=== PATIENT | male | born 1975 | race African-American/Black ===

== ENCOUNTER 2020-04-30 13:30 | Outpatient (RCR) | payer OTHER, SELFPAY ==
--- NOTE | 2020-03-10 08:33 | OTOPEVAL ---
OCCUPATIONAL THERAPY INITIAL EVALUATION REPORT 03/10/2020 Thank you for referring Dani Ulloa to [facility].? The patient is scheduled to be seen for therapy? 2x/week for 5 weeks. Please review, sign, date and return this plan of care SERGIO. I agree with and certify that the following plan of care is medically necessary. Referring Physician Date Referring Provider: Paco Atkinson MD *OT Outpatient Evaluation Therapy Assessment Status Assessment Status Evaluation Outpatient Past Medical History Past Medical History Source of Past Medical History Patient,Family/Significant Other Other Source of Past Medical History Med list Neurological History Hx Cerebrovascular Accident (CVA) Yes: 02/11/2020 Cardiovascular History Hx Hypercholesterolemia Yes Hx Hypertension Yes Gastrointestinal History Hx Gastroesophageal Reflux Disease Yes Endocrine History Hx Diabetes Yes Evaluation Information Problem Diagnosis CVA Onset 02/11/20 Subjective Information Patient is s/p acute rehab (x5 Query Text:As Reported By Patient/ days) and inpatient rehab (x2 Family weeks). Discharged home on 03/03/20 with orders for outpatient OT, PT, and ST services. He presents today with his [id number], Briseyda. Prior Level of Function Activity Level (Last 3 Months) Occupation Not working prior to CVA Hand Dominance Right Activity of Daily Living Ability Independent Indoor/Home Mobility Independent Community Mobility Independent Stairs Ability Independent Functional Cognition (Planning, Shopping Independent , Taking Medications) Cooking Yes Cleaning Yes Laundry Yes Shopping Yes Driving Yes Home Setting Home Type House,Multiple Levels Environmental Barriers Stairs, None,Stairs, Greater than 4 Living Situation With Minor Child,With Relatives Mobility Assistive Devices (Used Last 3 None Months) Bathroom Environment Tub/Shower, Curtain Bathing Equipment Grab Bars Toileting Equipment None Comments Additional Prior Level of Function Patient lives in a walk-out Comments basement apartment at his [id number]'s home. His two minor children live with him. He doesn't have any steps to enter, but there are 12 steps
--- NOTE | 2020-03-10 15:55 | PTOPEVAL ---
Thank you for referring Dani Ulloa to [facility].? The patient is scheduled to be seen for therapy? 2 x/week for 5 weeks. Please review, sign, date and return this plan of care SERGIO. I agree with and certify that the following plan of care is medically necessary. Referring Physician Date Admitting Provider: Attending Provider: PHYSICIAN NOT ON STAFF Referring Provider: *PT Outpatient Evaluation Start: 03/10/20 10:44 Freq: Status: Active Protocol: Document 03/10/20 14:29 [facility] (Rec: 03/10/20 15:17 [facility] [id number]) Therapy Assessment Status Assessment Status Assessment Status Evaluation Outpatient Past Medical History Past Medical History Source of Past Medical History Patient,Family/Significant Other Other Source of Past Medical History Medlist Neurological History Hx Cerebrovascular Accident (CVA) Yes: 02/11/2020 Cardiovascular History Hx Hypercholesterolemia Yes Hx Hypertension Yes Gastrointestinal History Hx Gastroesophageal Reflux Disease Yes Endocrine History Hx Diabetes Yes Evaluation Information Problem Diagnosis CVA Onset 02/11/20 Subjective Information Ischemic CVA on 02/11/20. Pt Query Text:As Reported By Patient/ only admitted to hospital for Family one day before dischared to rehab. Mother in law reports that tests were done that confirmed he had a blockage. Administered TPA and they implanted a loop recoreder to monitor his cardiac activity. Had 3 weeks of therapy at [facility] inpatient rehab. Denies numbness/tingling at rest. However, numbness of R LE in all dermatomes after increased activity. Used walker at hospital however has not used it since and did not use it in rehab. Wal[place] 1[place] 2x[place]day with his kids. Phone appointment next with primary, neurologist next 02/15, and center maker hand 03/11. States no falls since discharge from rehab. Diagnostic Tests MRI For This Problem Yes Previous Treatments Previous Treatments For This Problem [facility] for [facility] x
--- NOTE | 2020-03-10 16:01 | STOPEVAL ---
SPEECH THERAPY INITIAL EVALUATION: Thank you for referring Dani Ulloa to [facility].? The patient is scheduled to be seen for speech therapy?2x/week for 5 weeks to focus on improving receptive and expressive communication deficits as described below. Please review, sign, date and return this plan of care SERGIO. I agree with and certify that the following plan of care is medically necessary. Referring Physician Date Attending Provider: PHYSICIAN NOT ON STAFF *ST Outpatient Evaluation Start: 03/10/20 13:47 Freq: Status: Active Protocol: Document 03/10/20 13:47 [email or web address] (Rec: 03/10/20 14:38 BECHERERT [email or web address]) Therapy Assessment Status Assessment Status Assessment Status Evaluation Outpatient Past Medical History Past Medical History Source of Past Medical History Patient,Family/Significant Other Other Source of Past Medical History Medlist Neurological History Hx Cerebrovascular Accident (CVA) Yes: 02/11/2020 Cardiovascular History Hx Hypercholesterolemia Yes Hx Hypertension Yes Gastrointestinal History Hx Gastroesophageal Reflux Disease Yes Endocrine History Hx Diabetes Yes Evaluation Information Problem Diagnosis CVA Onset 02/11/20 Subjective Information Patient is s/p acute rehab (x5 Query Text:As Reported By Patient/ days) and inpatient rehab (x2 Family weeks). Discharged home on 03/03/20 with orders for outpatient OT, PT, and ST services. He presents today with his [id number], Briseyda. Currently no driving. Phone appointment next , neurologist next mon, practice billing associate 03/11/20. No falls. Implanted capsule in heart. Ischemic stroke. Diagnostic Tests MRI For This Problem Yes Previous Treatments Previous Treatments For This Problem [facility] Prior Level of Function Home Setting Home Type House,Multiple Levels Environmental Barriers Stairs, None,Stairs, Greater than 4 Living Situation With Adult Child,With Minor Child,With Relatives Cargiver Responsibilities Comment Lives in basement. Kids are 17 and 14. Mobility Assistive Devices (Used Last 3 None Months) Bathroom Environment Tub/Shower, Curtain Bathing Equipment Grab Bars Toileting Equipment None Comments Additional Prior Level of Function Patient lives in a walk-out Comments
--- NOTE | 2020-03-30 07:26 | PCPTNOTE ---
Patient's mother in law called & cancelled scheduled appointment this date. He is in the hospital after experiencing a second stroke.
--- NOTE | 2020-03-30 10:02 | PCOTNOTE ---
Patient's mother in law called and cancelled scheduled appointment this date due to the patient being hospitalized after having another stroke. They are going to call with an update as to when he would be returning to therapy.
--- NOTE | 2020-04-02 09:58 | OTOPEVAL ---
OCCUPATIONAL THERAPY RE-EVALUATION: 04/02/2020 Thank you for referring Dani Ulloa to [facility].? The patient is scheduled to be seen for therapy? 2x/week for 4 weeks. Please review, sign, date and return this plan of care SERGIO. I agree with and certify that the following plan of care is medically necessary. Referring Physician Date Attending Provider: PHYSICIAN NOT ON STAFF *OT Outpatient Re-Evaluation Start: 03/10/20 07:24 Freq: Status: Active Protocol: Document 04/02/20 09:01 ALEJANDRO (Rec: 04/02/20 09:58 ALEJANDRO [email or web address]) Therapy Assessment Status Assessment Status Assessment Status Re-evaluation Evaluation Information Problem Diagnosis CVA Onset 02/11/20 Additional Evaluation Detail Patient has attended outpatient OT for 4 treatment sessions. On 03/29/2020 pt's L arm became numb and pt went to hospital thinking it may be stroke symptoms. Pt has now returned back to outpatient occupational therapy with new order and will have re- evaluation. Prior Level of Function Activity Level (Last 3 Months) Occupation Not working Hand Dominance Right Activity of Daily Living Ability Independent Indoor/Home Mobility Independent Community Mobility Independent Stairs Ability Independent Functional Cognition (Planning, Shopping Independent , Taking Medications) Cooking Yes Cleaning Yes Laundry Yes Shopping Yes Driving Yes Home Setting Home Type House Environmental Barriers Stairs, Greater than 4 Living Situation With Adult Child Cargiver Responsibilities Comment Lives in basement. Kids are 17 and 14. Mobility Assistive Devices (Used Last 3 None Months) Bathroom Environment Tub/Shower, Curtain Bathing Equipment None Toileting Equipment None Comments Additional Prior Level of Function Pt lives in basement with 2 Comments kids age 14 and 17. Mother in law lives upstairs. Right HR ascending from basement to main floor. If he exits to the patio there are no stairs to navigate, states he normally
--- NOTE | 2020-04-02 10:45 | PTOPEVAL ---
PHYSICAL THERAPY PLAN OF CARE UPDATE AND PROGRESS REPORT Thank you for referring Dani Ulloa to [facility].? The patient is scheduled to be seen for therapy? 2x/week for 2 weeks. Please review, sign, date and return this plan of care SERGIO. I agree with and certify that the following plan of care is medically necessary. Referring Physician Date Progress Diagnosis CVA Onset 02/11/20 Subjective Information Ischemic CVA on 02/11/20. Pt Query Text:As Reported By Patient/ only admitted to hospital for Family one day before dischared to rehab. Mother in law reports that tests were done that confirmed he had a blockage. Administered TPA and they implanted a loop recoreder to monitor his cardiac activity. Dani reports no significant changes today. He was in the hospital over the weekend for suspected TIA, but he presents with no new symptoms. Hip Strength Right Hip Flexion Strength 4 Good Hip Extension Strength 3 Fair Hip Abduction Strength 4- Good - Left Hip Flexion Strength 5 Normal Hip Extension Strength 5 Normal Hip Abduction Strength 4+ Good + Knee Strength Right Knee Flexion Strength 5 Normal Knee Extension Strength 4+ Good + Left Knee Flexion Strength 5 Normal Knee Extension Strength 5 Normal Ankle Strength Right Ankle Dorsiflexion Strength 4 Good Ankle Strength Comments 15/20 unilateral heel raises on right; 20/20 unilateral heel raises x20/20 Left Ankle Dorsiflexion Strength 5 Normal Ankle Plantarflexion Strength 5 Normal [place] Balance Score: 56/56 points Time Up Go (TUG) Timed Up and Go Test (TUG) (Seconds) 7 Assistive Devices None 5 Time Sit to Stand Time in Seconds 13.02 5 Time Sit to Stand Comments initial evaluation: 19seconds Query Text:Normative Data: If Greater Than 15 Seconds, 74% Increase Risk for Recurrent Falls Gait Assessment 2 Minute Walk Total Distance Walked (feet) 572 2 Minute Walk Gait Speed Score (feet/ 4.76 second) Number of Breaks Required 0 2 Minute Walk Test Comments initial evaluation: 536ft Safety Assessment Patient Safety Factors Affecting Safety No Concerns PT Clinical Summary Dani has participate din 3
--- NOTE | 2020-04-02 15:29 | STOPEVAL ---
Speech Therapy Re evaluation and Plan of Care Update: Thank you for referring Dani Ulloa to [facility].?Dani has exhibited considerable improvement since initial evaluation and has achieved the previous short term goals; ST should continue in order to return to speech/language baseline and subsequently return to work. The patient is scheduled to be seen for therapy?1-2 x/week for 4 weeks. Please review, sign, date and return this plan of care SERGIO. I agree with and certify that the following plan of care is medically necessary. Referring Physician Date Attending Provider: PHYSICIAN NOT ON STAFF *ST Outpatient Re-Evaluation Start: 03/10/20 13:47 Freq: Status: Active Protocol: Document 04/02/20 14:22 KIMBERLY (Rec: 04/02/20 15:21 BECHERERT [email or web address]) Therapy Assessment Status Assessment Status Assessment Status Re-evaluation Outpatient Past Medical History Past Medical History Source of Past Medical History Patient,Family/Significant Other Other Source of Past Medical History Medlist Neurological History Hx Cerebrovascular Accident (CVA) Yes: 02/11/2020 Cardiovascular History Hx Hypercholesterolemia Yes Hx Hypertension Yes Gastrointestinal History Hx Gastroesophageal Reflux Disease Yes Endocrine History Hx Diabetes Yes Pain Assessment Timing of Pain Assessment Timing of Pain Assessment Assessment Self Report Self Report Pain Level 0 Pain Score Pain Score 0: Self Report Language Evaluation Auditory Comprehension Body Part Identification (% Accuracy (0- 100 100)) Object Identification (% Accuracy (0-100 100 )) Simple Yes/No Questions (% Accuracy (0- 100 100)) Moderate Yes/No Questions (% Accuracy (0 80 -100)) Complex Yes/No Questions (% Accuracy (0- 80 100)) Auditory Comprehension of Complex 75 Directives (% Accuracy (0-100)) Auditory Comprehension of Simple 100 Paragraphs (% Accuracy (0-100)) Auditory Comprehension of Moderate 20 Paragraphs (% Accuracy (0-100)) Response Latency Mild Deficits Factors Limiting Auditory Comprehension Aphasia Overall Auditory Comprehension Ability Mild Deficits Additional Auditory Comprehension marked improvement since Comments initial evaluation Reading Comprehension Name Recognition Yes Numeral Comprehension (% Accuracy (0-100 100 )) Letter Comprehension (% Accuracy (0-100) 100 ) Single Word Comprehension (% Accuracy (0 100 -100)) Comprehension: 3-4 Words (% Accuracy (0- 100 100)) Comprehension: 5-7 Words (% Accuracy (0- 100 100)) Comprehension: 8-10 Words (% A
--- NOTE | 2020-04-16 10:45 | PTOPEVAL ---
PHYSICAL THERAPY DISCHARGE NOTE Thank you for referring Dani Ulloa to [facility].? Please review, sign, date and return this plan of care SERGIO. I agree with and certify that the following plan of care is medically necessary. Referring Physician Date Discharge Yes Subjective Information Ischemic CVA on 02/11/20. Pt Query Text:As Reported By Patient/ only admitted to hospital for Family one day before dischared to rehab. Dani moved into his own home and living on his own. States he is able to participate in all activities as needed. Pain Assessment Timing of Pain Assessment Timing of Pain Assessment Pre-Treatment Self Report Self Report Pain Level 0 Pain Score Pain Score 0: Self Report Lower Extremity Muscle Strength Testing Hip Strength Right Hip Flexion Strength 4+ Good + Hip Extension Strength 4+ Good + Hip Abduction Strength 4 Good Left Hip Flexion Strength 5 Normal Hip Extension Strength 5 Normal Hip Abduction Strength 4+ Good + Knee Strength Right Knee Flexion Strength 5 Normal Knee Extension Strength 5 Normal Left Knee Flexion Strength 5 Normal Knee Extension Strength 5 Normal Ankle Strength Right Ankle Dorsiflexion Strength 5 Normal Ankle Strength Comments 20/20 unilateral heel raises on right; Left Ankle Dorsiflexion Strength 5 Normal Ankle Plantarflexion Strength 5 Normal Balance Assessment Ram Balance Assessment Sitting to Standing Independent w/out Hands Unsupported Stance Ability Safely- 2 minutes Sitting Unsupported, Feet on Floor Safely- 2 minutes Standing to Sitting Safely, Minimal Hand Use Transfer Ability Safely, Minimal Hand Use Unsupported Stance- Eyes Closed Safely, 10 seconds Unsupported Stance- Feet Together Independent, 1 minute Reaching Forward while Standing Confidently, 10 inches 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
--- NOTE | 2020-04-30 13:17 | OTOPEVAL ---
OCCUPATIONAL THERAPY RE-EVALUATION/DISCHARGE SUMMARY: 04/30/2020 Thank you for referring Dani Ulloa to [facility].? As noted below, no further skilled OT is indicated at this time. Plan to discharge today with patient independent with HEP. Please review, sign, date and return this plan of care SERGIO. I agree with and certify that the following plan of care is medically necessary. Referring Physician Date Attending Provider: PHYSICIAN NOT ON STAFF *OT Outpatient Re-Evaluation/Discharge Summary Start: 03/10/20 07:24 Freq: Status: Active Protocol: Document 04/30/20 12:33 KJL (Rec: 04/30/20 13:17 KJL [email or web address]) Therapy Assessment Status Assessment Status Re-evaluation/Discharge Summary Evaluation Information Problem Diagnosis CVA Onset 02/11/20 Subjective Information Ischemic CVA on 02/11/20. Pt Query Text:As Reported By Patient/ only admitted to hospital for Family one day before discharged to rehab. Dani moved into his own home and living on his own. Pt reports is able to drive again and is able to complete all daily and household tasks independently. Pt reports completes all HEP materials issued independently. Pain Assessment Timing of Pain Assessment Timing of Pain Assessment Assessment Self Report Self Report Pain Level 0 Pain Score Pain Score 0: Self Report Upper Extremity Range of Motion General Upper Extremity Range of Motion Reason Not Measured WNL/Left,WNL/Right Upper Extremity Muscle Strength Testing Scapular/Shoulder Left Shoulder Elevation - Upper Trapezius 5 Normal Scapular Retraction - Middle Trapezius 5 Normal Shoulder Flexion Strength 5 Normal Shoulder Extension Strength 5 Normal Shoulder Abduction Strength 5 Normal Shoulder Adduction Strength 5 Normal Shoulder Medial Rotation Strength 5 Normal Shoulder Lateral Rotation Strength 5 Normal Right Shoulder Elevation - Upper Trapezius 4+ Good + Scapular Retraction - Rhomboid 4+ Good + Scapular Retraction - Middle Trapezius 4+ Good + Scapular Retraction - Lower Trapezius 4+ Good + Scapular Protraction - Serratus 4+ Good + Scapular Strength Comments improved from muscle grade of 4/5 to 4+/5 Shoulder Flexion Strength 4+ Good + Shoulder Extension Strength 4+ Good + Shoulder Abduction Strength 4+ Good + Shoulder Adduction Strength 4+ Good + Shoulder Horizontal Abduction Strength 4+ Good + Shoulder Horizontal Adduction Strength 4+ Good + Shoulder Medial Rotation Strength 4+ Good + Laine
--- NOTE | 2020-04-30 14:17 | STOPEVAL ---
SPEECH THERAPY DISCHARGE: Thank you for referring Dani Ulloa to [facility].? The patient has completed 12 sessions and has returned to baseline level; therefore, he will be discharged from treatment at this time. Please review, sign, date and return this discharge SERGIO. I agree with and certify that the following plan of care is medically necessary. Referring Physician Date Attending Provider: PHYSICIAN NOT ON STAFF *ST Outpatient RE Evaluation Start: 03/10/20 13:47 Freq: Status: Active Protocol: Document 04/30/20 13:41 BECMARYBETHRT (Rec: 04/30/20 14:16 BECHERERT [email or web address]) Therapy Assessment Status Assessment Status Assessment Status Re-evaluation Outpatient Past Medical History Past Medical History Source of Past Medical History Patient,Family/Significant Other Other Source of Past Medical History Medlist Neurological History Hx Cerebrovascular Accident (CVA) Yes: 02/11/2020 Cardiovascular History Hx Hypercholesterolemia Yes Hx Hypertension Yes Gastrointestinal History Hx Gastroesophageal Reflux Disease Yes Endocrine History Hx Diabetes Yes Pain Assessment Timing of Pain Assessment Timing of Pain Assessment Assessment Self Report Self Report Pain Level 0 Pain Score Pain Score 0: Self Report Language Evaluation Auditory Comprehension Body Part Identification (% Accuracy (0- 100 100)) Object Identification (% Accuracy (0-100 100 )) Simple Yes/No Questions (% Accuracy (0- 100 100)) Moderate Yes/No Questions (% Accuracy (0 100 -100)) Complex Yes/No Questions (% Accuracy (0- 100 100)) Auditory Comprehension of Moderate 100 Paragraphs (% Accuracy (0-100)) Auditory Comprehension of Complex 90 Paragraphs (% Accuracy (0-100)) Response Latency Mild Deficits Overall Auditory Comprehension Ability WFL Additional Auditory Comprehension Improved and nearly baseline Comments Reading Comprehension Name Recognition Yes Comprehension: 5-7 Words (% Accuracy (0- 100 100)) Comprehension: 8-10 Words (% Accuracy (0 90 -100)) Comprehension of Complex Statements (% 90 Accuracy (0-100)) Comprehension of Simple Paragraphs (% 100 Accuracy (0-100)) Comprehension of Moderate Paragraphs (% 84 Accuracy (0-100)) Comprehension of Functional Reading WFL Materials Response Latency Mild Deficits Overall Reading Comprehension Ability WFL Verbal Expression Sentence Formation Given a Stimulus Word 100 (% Accuracy (0-100)) Sentence Formation in Spontaneous WFL
== END 2020-05-25 10:50 | disposition home or self-care (01) ==
LOC: ANHST 13:30
DX: I63.9 Cerebral infarction, unspecified (principal)
CPT/HCPCS: 92507; 92523; 97110; 97140; 97161; 97166; 97168; 97530

== ENCOUNTER 2020-05-20 08:34 | Observation (INO) | payer OTHER, SELFPAY ==
[2020-05-20] VITALS (13 sets, daily range): BP systolic 119–152; BP diastolic 82–98; PULSE 65–92; RESP 12–28; TEMP 36.6–36.7; O2SAT 98–100; BMI 30.9
--- NOTE | ~2020-05-20 | XR_ITS ---
XR chest 1V portable DATE: 05/20/2020 09:42 INDICATION: Left chest pain. TECHNIQUE: Portable AP chest on 05/20/2020 at 0935 hours COMPARISON: 12/21/2013 PA and lateral chest FINDINGS: Normal heart size. Heart monitor overlies the mid chest. No hilar or mediastinal enlargemen t. No pulmonary infiltrate or consolidation, pleural effusion, pulmonary vascular congestion or pneum othorax. IMPRESSION: No active cardiopulmonary disease Reviewed, dictated and finalized at location B. [facility]
--- NOTE | 2020-05-20 08:37 | ECG_ITS ---
Measurements Intervals [place] Rate: 69 P: 46 AR: 153 QRS: 27 QRSD: 78 T: -28 QT: 331 QTc: 357 Interpretive Statements SINUS RHYTHM ST-T WAVE ABNORMALITY IN INFERIOR LEADS- CONSIDER ISCHEMIA BASELINE ARTIFACT- I, II, AVR, AVL, AVF ABNORMAL ECG Electronically Signed On 05-20-2020 8:49:47 [employer] by Irvin Hidalgo D.O.
--- NOTE | 2020-05-20 08:49 | ED.CHESTPAIN ---
HPI - Chest Pain General Chief Complaint: Chest Pain Stated Complaint: chest pain, lt arm pain sob Time Seen by Provider: 05/20/20 08:36 Source: old records reviewed History of Present Illness HPI narrative: Patient presents to emergency department from home for left-sided chest pain. Patient states the pain has been present for the past 2 days. The pain is located in the left upper chest and radiates in the left shoulder is described as scratchy in nature. Patient states he had a loop recorder placed several months ago in [place] and states that since that time has lost 30 pounds he states that he feels like the loop recorder is scratching on him causing him the pain. He states the pain is worse with movement of his left shoulder denies any fevers or chills shortness of breath abdominal pain nausea vomiting or any other symptoms patient states he took ibuprofen this morning for the pain minimal relief Related Data Home Medications Medication Instructions Recorded Confirmed aspirin 81 mg PO 05/20/20 atorvastatin 40 mg PO 05/20/20 cetirizine 10 mg PO 05/20/20 insulin glargine [Basaglar KwikPen SUBCUT 05/20/20 U-100 Insulin] insulin lispro [Admelog U-100 05/20/20 Insulin lispro] lisinopril 5 mg PO 05/20/20 metformin 500 mg PO 05/20/20 sitagliptin [Januvia] 100 mg PO 05/20/20 Allergies Allergy/AdvReac Type Severity Reaction Status Date / Time Pork/Porcine Containing AdvReac Vomiting Verified 05/20/20 08:45 Products Review of Systems Review of Systems: Narrative: Gen.: Denies fevers or chills ENT: Denies congestion Respiratory: Denies shortness of breath or cough CV: D see HPI GI: Denies abdominal pain nausea, emesis or diarrhea Musculoskeletal: Denies back pain or muscle pain Neuro: Denies numbness, tingling, weakness or focal weakness Skin: Denies rash Except as documented, all other systems reviewed and negative [facility] Past Medical History Medical History (Updated 05/20/20 @ 12:15 by Tano Fish DO) CVA (cerebral vascular accident) Diabetes mellitus Hypercholesterolemia Social History Social History (Updated 05/20/20 @ 08:50 by Tano Fish DO) Smoking status: Never smoker Gender identity (if verbalized by the patient): Male Exam Narrative: Exam Narrative: APPEARANCE: No acute distress, nontoxic, resting in bed EYES: EOMI HEENT: Normocephalic, atraumatic, OMM RESPIRATORY: No respiratory distress Clear to auscultation bilaterally with no rhonchi wheezing or rales. CARDIOVASCULAR: Regular rate and rhythm without murmurs rubs or gallops. Chest: Tender palpation left superior anterior chest, with point tenderness present, pain with flexion abduction of the left shoulder greater than 45 degrees, bilateral radial pulse 2+ ABDOMINAL: Soft, nontender, nondistended, no rebound or guarding MUSCULOSKELETAl: Moves all extremities. No clubbing, cyanosis or edema. NEURO: Awake and alert. Following commands, speech normal, no focal deficits SKIN:: Warm, dry. No rashes lesions or abrasions PSYCHIATRIC: Normal affect/mood, Course Course Emergency Course: Patient notes no change in pain with Tylenol patient states pain is improved with morphine All discussed with RETIREMENT BENEFITS SPECIALIST and Jose for Dr. Estrada presentation work-up agrees with consult this time is admission the hospital service Discussed Dr Fish presentation work-up agrees with admission at this time Discussed with patient and family results of workup and diagnosis. Discussed need for admission. Patient and family understand and agree to current treatment plan Vital Signs Vital signs: Vital Signs Pulse Rate 73 05/20/20 08:39 Respiratory Rate 28 H 05/20/20 08:39 Blood Pressure 149/96 H 05/20/20 08:39 Pulse Oximetry 100 05/20/20 08:39 Pulse Rate 72 05/20/20 10:15 Respiratory Rate 25 H 05/20/20 10:15 Blood Pressure 137/85 05/20/20 10:15 Pulse Oximetry 100 05/20/20 10:15 MDM - Chest Pain Lab Data Re
[2020-05-20 08:57] LABS: Basophils Absolute Auto 0.1 K/mm3 (0.0-0.1); Basophils Percent Auto 1.3 % (0.2-1.2); Eosinophils Absolute Auto 0.1 K/mm3 (0-0.3); Eosinophils Percent Auto 1.6 % (0-4.4); Hemoglobin 16.1 g/dL (14.0-18.0); Immature Granulocyte Absolute 0.02 K/mm3 (0.00-0.031); Immature Granulocyte Percent A 0.3 % (0-0.5); Lymphocytes Absolute Auto 2.48 K/mm3 (0.9-3.2); Lymphocytes Percent Auto 32.6 % (18.3-44.2); Mean Corpuscular HGB Conc 34.3 g/dl (32-36); Mean Corpuscular Hemoglobin 30.6 pg (26-34); Mean Corpuscular Volume 89.2 fl (80-100); Mean Platelet Volume 10.2 fl (7.4-10.4); Monocytes Absolute Auto 0.6 K/mm3 (0.1-0.6); Monocytes Percent Auto 7.2 % (2.6-8.5); Neutrophils Absolute Auto 4.3 K/mm3 (1.3-6.7); Platelet Count Result 367 k/mm3 (150-375); Red Blood Count 5.27 M/mm3 (4.6-6.20); Red Cell Distribution Width 11.9 % (11.5-14.5); White Blood Count 7.6 K/mm3 (4.5-10.0)
[2020-05-20 09:08] LABS: Prothrombin Time 13.5 Seconds (11.1-14.7)
[2020-05-20 09:09] LABS: Partial Thromboplastin Time 26.4 SECONDS (22.3-36.8)
[2020-05-20 09:10] LABS: Alanine Aminotransferase 23 U/L (4-50); Albumin Level 4.3 g/dL (3.5-5.1); Alkaline Phosphatase 61 U/L (38-126); Anion Gap 10 mmol/L (8-16); Aspartate Amino Transferase 44 U/L (17-59); Bilirubin,Total 0.8 mg/dL (0.2-1.3); Blood Urea Nitrogen 14 mg/dL (9-20); Carbon Dioxide 27 mmol/L (22-30); Chloride 101 mmol/L (98-107); Estimated CRCL calculation 82 ml/min; Estimated Glomerular Filt Rate > 60; Glucose 145 mg/dL (75-110); Potassium 4.7 mmol/L (3.4-5.0); Sodium 138 mmol/L (137-145)
[2020-05-20] MEDS: ASPIRIN 81 MG CHEWABLE TABLET 324 MG PO (09:15)
[2020-05-20 09:22] LABS: Troponin I < 0.012 ng/mL (0.000-0.034)
[2020-05-20] MEDS: MORPHINE SULFATE (*CRX) 2 MG/ML INJ IV PUSH (10:13)
[2020-05-20 10:47] LABS: D Dimer < 0.22 ug/mL (<0.48)
[2020-05-20 11:46] LABS: Troponin I < 0.012 ng/mL (0.000-0.034)
[2020-05-20 13:37] LABS: Glucose Point of Care 102 (65-105)
--- NOTE | 2020-05-20 13:57 | ADMGEN ---
This patient, Dani Ulloa, was admitted to [facility]. Patient/family oriented to hospital policies and general routines including ID bracelet, bed and alarms, visiting hours, pain management, procedures, bathroom and other care routines, personal items, smoking policy, room service/diet, and visiting hours. Information on how to activate the Rapid Response Team has been discussed. Patient/Family are encouraged to report perceived risks to care and to ask questions if they do not understand what they are told or what they should do.
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
--- NOTE | 2020-05-20 14:19 | ECG_ITS ---
Measurements Intervals [place] Rate: 64 P: 35 SD: 160 QRS: 24 QRSD: 80 T: -39 QT: 346 QTc: 358 Interpretive Statements SINUS RHYTHM NONSPECIFIC T-WAVE ABNORMALITY- INFERIOR LEADS BORDERLINE ECG Electronically Signed On 05-20-2020 15:46:54 UTILITY ACCOUNTS DIRECTOR by Irvin Hidalgo D.O.
[2020-05-20 14:46] LABS: Troponin I < 0.012 ng/mL (0.000-0.034)
[2020-05-20 16:51] LABS: Hemoglobin A1C 5.5 % (<5.7)
[2020-05-20 17:08] LABS: Glucose Point of Care 124 (65-105)
[2020-05-20] MEDS: metFORMIN HCL XR 500 MG TAB.SR.24H PO (17:52)
--- NOTE | 2020-05-20 19:00 | PM.CNCAR ---
Assessment and Plan Assessment and plan (1) Chest pain: Code(s): R07.9 - Chest pain, unspecified Status: Acute Assessment and Plan: Patient has had chest pain in the last 2 days which he blames on his loop recorder. However his entire pectoral muscle area is tender and I believe he has muscle strain. No evidence of cardiac issues. The loop recorder site appears well healed and not infected. Will add (short term) Toradol, in addition to the tramadol Assured the patient that I did not think that the loop recorder was the cause but muscle strain, and that he will get better. No further cardiac evaluation needed. (2) Status post placement of implantable loop recorder: Code(s): Z95.818 - Presence of other cardiac implants and grafts Status: Acute Assessment and Plan: The loop recorder is followed elsewhere, and download in March 23, 2020 showed no atrial fibrillation. (3) Hypertension: Code(s): I10 - Essential (primary) hypertension Status: Acute Assessment and Plan: Reasonably well controlled. (4) Hypercholesterolemia: Code(s): E78.00 - Pure hypercholesterolemia, unspecified Status: Acute Assessment and Plan: Taking a statin. (5) CVA (cerebral vascular accident): Code(s): I63.9 - Cerebral infarction, unspecified Status: Acute Assessment and Plan: Stroke in January treated with tPA with good results. History of Present Illness History of Present Illness Consult date/time: 05/20/20 19:00 Requesting physician: Radha Fish MD Consult reason: chest pain Reason For Visit: Left-sided chest pain and shortness of breath. Narrative: Date of service: 05/20/2020 Dani Ulloa is a 44-year-old male whom we were asked see at the request of Dr. Johnson for advice and opinion regarding his chest discomfort, in consultation. He also carries a history of a stroke (February 2020, treated with tPA), hypertension and diabetes. He had a loop recorder implanted over the summer for his stroke evaluation. Her sternal of started having some chest discomfort 2 days ago after doing some cleaning around the house some laundry. It was intermittent. It got more intense yesterday when he was at with his brother. Is been a continuous pain since yesterday. This starts the sternum and radiates to the left pectoral area. It is worse with movement and deep breathing. It makes him feel little short of breath because he cannot take a deep breath without it hurting. He has had no fevers or coughs. Ibuprofen has helped some. The pain is now a 5-6/10. The patient believes that his chest pain is due to his loop recorder; it is more superficial since the had a 35 lb intentional weight loss over the last few months. There have been no fevers or chills. Review of Systems Constitutional: Constitutional: Denies weakness Eyes: Eyes: Reports no additional eye complaints ENT: Reports Normal hearing present Cardiovascular: Cardiovascular: Reports chest pain, Denies diaphoresis, Denies pedal edema, Denies leg edema and Denies lightheadedness Respiratory: Respiratory: Denies cough, Reports dyspnea and Denies wheezing Gastrointestinal: Gastrointestinal: Denies abdominal pain, Denies melena, Denies constipation and Denies hematemesis Genitourinary: Genitourinary: Denies hematuria and Denies dysuria Musculoskeletal: Musculoskeletal: Denies back pain Integumentary/Breasts: Skin/Breast: Denies rash Neurologic: Denies headache(s) Comments: Some right hand paresthesias since the stroke Psychiatric: Psychiatric: Reports no additional psychiatric complaints Endocrine: Comments: 35 lb intentional weight loss to help with his diabetes and hypertension [facility]
[2020-05-20] MEDS: traMADol HCL (*CRX) 50 MG TABLET 25 MG PO (19:01)
[2020-05-20 20:13] LABS: Glucose Point of Care 95 (65-105)
[2020-05-20] MEDS: KETOROLAC 30 MG/ML VIAL (*BKC) IV PUSH (20:14)
[2020-05-21] VITALS (8 sets, daily range): BP systolic 116–146; BP diastolic 72–91; PULSE 74–96; RESP 17–20; TEMP 36.3–36.9; O2SAT 100
[2020-05-21 08:26] LABS: Glucose Point of Care 140 (65-105)
[2020-05-21] MEDS: ASPIRIN 81 MG CHEWABLE TABLET PO (08:34)
[2020-05-21] MEDS: lisinopriL 10 MG TABLET PO (08:34)
[2020-05-21] MEDS: metFORMIN HCL XR 500 MG TAB.SR.24H PO (08:34)
[2020-05-21] MEDS: LORATADINE 10 MG TABLET PO (08:34)
[2020-05-21] MEDS: ATORVASTATIN 40 MG TABLET PO (08:34)
[2020-05-21] MEDS: INSULIN GLARGINE (*BKC) 100 UNITS/ML 40 UNITS SUB-Q (09:24)
--- NOTE | 2020-05-21 09:31 | PC.NURSE ---
0900-pt did not receive long-acting insulin last night as there was a mix-up with the nurse. Nurse believed pt did not take long acting insulin if his sugar was normal but pt meant his sliding scale. Md informed and given order to give Lantus at 40 units to ensure pt does not suffer from hypoglycemia. Orders carried out as prescribed. Pt resting quietly. Will continue to monitor.
--- NOTE | 2020-05-21 11:10 | PC.NURSE ---
DR. LEZAMA HERE TO SEE PT.
--- NOTE | 2020-05-21 13:25 | PC.NURSE ---
DISCHARGE PACKET GIVEN AND REVIEWED W/ PT. ALL QUESTIONS ANSWERED. VOICED UNDERSTANDING OF ALL. DISCHARGED HOME, OUT AMBULATORY W/ ALL PERSONAL BELONGINGS AND DISCHARGE PACKET TO [id number] WAITING [facility]. STEADY GAIT. DENIES PAIN. NO DISTRESS NOTED.
--- NOTE | 2020-05-21 14:46 | PM.DS ---
DS: Admitting Diagnosis Admitting Diagnosis Admitting Diagnosis: Left-sided chest pain and shortness of breath. Dani Ulloa is a pleasant 44-year-old male with insulin-dependent diabetes, hypertension, hyperlipidemia, and history of stroke who presented to the emergency department earlier this morning via private vehicle from home for evaluation of left-sided chest pain and shortness of breath. Chest pain found to be more atypical. Muscular chest pain ? excessive exercise or loop recorder device. Troponin x3 negative. Seen by cardiology ok for discharge. Pt has lost alot of weight probably does not need so much long acting insulin I will cut back to 50 units from 60 units. History of recent stroke, DM and loop recorder. Pt is trying to stay more healthy and exercise and loose weight. DS: Discharge Diagnosis Discharge Diagnosis (1) Chest pain: Code(s): R07.9 - Chest pain, unspecified Status: Acute Assessment and Plan: See above, more atypical. (2) Insulin dependent type 2 diabetes mellitus: Code(s): E11.9 - Type 2 diabetes mellitus without complications; Z79.4 - group home (current) use of insulin Status: Chronic Assessment and Plan: See above, reducing long acting dosage (3) Hypertension: Code(s): I10 - Essential (primary) hypertension Status: Chronic Assessment and Plan: Continue home medications (4) Hyperlipidemia: Code(s): E78.5 - Hyperlipidemia, unspecified Status: Chronic DS: Summary Time Spent with Patient Time attestation: Total time spent providing and/or coordinating discharge services:40 minutes on day of discharge Exam Narrative: Exam Narrative: General: Well-developed male HEENT: Normocephalic Neck: Supple. Respiratory: Lungs are clear to auscultation bilaterally. Cardiovascular: Regular rate and rhythm with S1-S2. Muscular chest pain Chest: Discomfort upon palpation of the left anterior chest and up to the shoulder at the site loop recorder. Gastrointestinal: Abdomen is soft, nontender, and nondistended with positive bowel sounds. Skin: Warm and dry. No rash or lesions on limited exam. Extremities: No cyanosis, clubbing, or edema. Radial and pedal pulses intact. Negative Silver sign bilaterally. Neurological: Alert. Cranial nerves 2-12 are grossly intact. Speech is somewhat slow but easily understandable. Right hand technical rep is weaker when compared to the left. Psychiatric: Pleasant and cooperative. Appropriate mood and affect. DS: Data Data Completed and Pending Labs on day of discharge: Labs from last 24 hours 05/21/20 05/20/20 05/20/20 08:24 20:08 17:02 POC Capillary Glucose 140 H 95 124 H Hemoglobin A1c Troponin I 05/20/20 05/20/20 14:18 08:48 POC Capillary Glucose Hemoglobin A1c 5.5 Troponin I < 0.012 Discharge Plan Discharge Attending physician on discharge: Radha Fish Consulting providers: Trey Estrada ; Martha Terrazas ; Irvin Hidalgo ; Anil Medel ; Carolin Crowell Discharging Clinician: Radha Fish Anticipated Discharge Date/Time: 05/21/20 11:39 Patient Disposition: Home, Self-Care Activity: as tolerated Diet: diabetic Discharge Instructions: Per Fatuma at Dr. Bairon Ma office, patient to make an appointment with [facility] at [phone] for cardiac followup. Patient Instructions: Chest Pain (DC) Stand Alone Forms: General Discharge Information Follow-up/Referrals: Anil,Bairon Farah MD [Primary Care Provider] - (PT HAS LOST WEIGHT I CUT BACK WITH HIS LONG ACTING TO 50 units daily ) Discharge Medications: Continued atorvastatin 40 mg tablet 40 mg PO DAILY RF: 0 cetirizine 10 mg tablet 10 mg PO DAILY RF: 0 aspirin 81 mg tablet,chewable 81 mg PO DAILY RF: 0 lisinopril 5 mg tablet 10 mg PO DAILY RF: 0 insulin lispro [Admelog U-100 Insulin lispro] 100 unit/mL tom
== END 2020-05-21 13:25 | disposition home or self-care (01) ==
LOC: ANHED 08:52 → ANHCPC 12:06
PROVIDERS: Physician Assistant; Admitting Provider Family Medicine; Emergency Provider Emergency Medicine; PCP Internal Medicine Gastroenterology; Visit Provider Family Medicine
DX: R07.89 Other chest pain (principal); R06.02 Shortness of breath; I69.351 Hemiplegia and hemiparesis following cerebral infarction affecting right dominant side; I69.320 Aphasia following cerebral infarction; E11.9 Type 2 diabetes mellitus without complications; E78.5 Hyperlipidemia, unspecified; I10 Essential (primary) hypertension; K21.9 Gastro-esophageal reflux disease without esophagitis; Z79.4 Long term (current) use of insulin; Z95.818 Presence of other cardiac implants and grafts
CPT/HCPCS: 36415; 71045; 80053; 83036; 84484; 85025; 85380; 85610; 85730; 93005; 96365; 96375; 99285; A9270; G0378; G0379; J0131; J1815; J1885; J2270

== ENCOUNTER 2020-06-12 11:47 | Emergency (ER) | payer OTHER, SELFPAY ==
--- NOTE | 2020-06-12 11:59 | ECG_ITS ---
Measurements Intervals [place] Rate: 65 P: 48 WV: 136 QRS: 29 QRSD: 88 T: -51 QT: 353 QTc: 369 Interpretive Statements SINUS RHYTHM WITH SINUS ARRHYTHMIA VENTRICULAR PREMATURE COMPLEX ST-T WAVE ABNORMALITY IN INFERIOR LEADS- CONSIDER ISCHEMIA BASELINE ARTIFACT- I, II, III, AVL ABNORMAL ECG Electronically Signed On 06-12-2020 12:06:01 FIBER ANALYST by Irvin Hidalgo D.O.
[2020-06-12 12:08] VITALS: BP 161/99; PULSE 69; RESP 18; TEMP 36.8; O2SAT 99
[2020-06-12 12:13] LABS: Glucose Point of Care 150 (65-105)
--- NOTE | 2020-06-12 12:16 | PC.NURSE ---
Called poison control and spoke with Martinez. Martinez suggests that we get a Tylenol level from pt. She states that almost 12 hours have passed and pt is stable , he should be ok. Will fax over information about overdose on Tylenol
[2020-06-12 12:25] LABS: Basophils Absolute Auto 0.1 K/mm3 (0.0-0.1); Basophils Percent Auto 1.8 % (0.2-1.2); Eosinophils Percent Auto 0.8 % (0-4.4); Hematocrit 48.6 % (42.0-52.0); Hemoglobin 16.8 g/dL (14.0-18.0); Immature Granulocyte Absolute 0.02 K/mm3 (0.00-0.031); Immature Granulocyte Percent A 0.4 % (0-0.5); Lymphocytes Absolute Auto 1.91 K/mm3 (0.9-3.2); Lymphocytes Percent Auto 38.3 % (18.3-44.2); Mean Corpuscular HGB Conc 34.6 g/dl (32-36); Mean Corpuscular Hemoglobin 30.5 pg (26-34); Mean Corpuscular Volume 88.4 fl (80-100); Mean Platelet Volume 10.2 fl (7.4-10.4); Monocytes Absolute Auto 0.4 K/mm3 (0.1-0.6); Neutrophils Absolute Auto 2.5 K/mm3 (1.3-6.7); Neutrophils Percent Auto 50.7 % (45.5-73.1); Platelet Count Result 392 k/mm3 (150-375); Red Cell Distribution Width 11.8 % (11.5-14.5)
[2020-06-12 12:35] LABS: Acetaminophen 18 ug/mL (10-30); Alanine Aminotransferase 17 U/L (4-50); Albumin Level 4.4 g/dL (3.5-5.1); Alkaline Phosphatase 73 U/L (38-126); Anion Gap 9 mmol/L (8-16); Aspartate Amino Transferase 25 U/L (17-59); Bilirubin,Total 0.5 mg/dL (0.2-1.3); Blood Urea Nitrogen 11 mg/dL (9-20); Calcium 10.1 mg/dL (8.4-10.2); Carbon Dioxide 27 mmol/L (22-30); Chloride 101 mmol/L (98-107); Estimated CRCL calculation 66 ml/min; Estimated Glomerular Filt Rate > 60; Ethanol < 10 mg/dL (<10); Glucose 149 mg/dL (75-110); Potassium 4.2 mmol/L (3.4-5.0); Salicylate < 1.0 mg/dL (2-20); Sodium 137 mmol/L (137-145)
[2020-06-12] MEDS: SODIUM CHLORIDE 0.9% IV 1,000 ML 999 ML IV CONT (12:41)
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
[2020-06-12 14:10] VITALS: BP 190/93; PULSE 82; RESP 24; O2SAT 100
[2020-06-12 14:31] LABS: Add Urine Microscopic? NO; Appearance Urine Clear (Clear); Bilirubin Urine Negative (Negative); Blood Urine Negative (Negative); Color Urine Straw (Yellow); Glucose Urine UA Negative (Negative); Ketones Urine Negative (Negative); Leukocyte Esterase Ur Negative LEU/UL (Negative); Nitrate Urine Negative (Negative); Protein Urine Negative (Negative); Specific Grav Ur 1.012 (1.001-1.035); Urobilinogen Urine Negative mg/dL (<2.0)
[2020-06-12 14:43] LABS: Amphetamine Screen Urine Negative (Negative); Barbiturate Screen Urine Negative (Negative); Benzodiazepines Screen Urine Negative (Negative); Cannabinoid Screen Urine Negative (Negative); Cocaine Screen Urine Negative (Negative); Methadone Screen Urine Negative (Negative); Opiate Screen Urine Negative (Negative); Phencyclidine Screen Urine Negative (Negative)
--- NOTE | 2020-06-12 14:51 | PC.NURSE ---
Martinez called from poison control wanting to know an update on pt. Informed Martinez of pts blood work. Martinez states that pts acetaminophen level (18) does not make sense with what pt states he took. Martinez states that levels should have peaked by now. Martinez recommended to repeat labs in [address] Roca of this.
--- NOTE | 2020-06-12 15:10 | PC.NURSE ---
Martinez called back from Posion control and said that she talked with the Milliner Helper and she stated that is pts acetaminophen level was less then 50 then no NAC is needed
[2020-06-12 16:32] VITALS: BP 138/72; PULSE 98; RESP 16; O2SAT 99
[2020-06-12 18:52] VITALS: BP 168/101; PULSE 95; RESP 16; TEMP 36.9; O2SAT 99
[2020-06-12 20:00] LABS: Acetaminophen < 10 ug/mL (10-30); Salicylate < 1.0 mg/dL (2-20)
--- NOTE | 2020-06-12 20:45 | PM.EVENT ---
Event Note Event Note Event Note: I came to see the patient in the emergency department on 06/12/2020 at approximately 20:30 hours (he was being boarded due to lack of beds). At that time I was informed by Dr. Cadet that the patient's repeat Tylenol level was undetectable and that he was now medically cleared for psychiatric evaluation. Admission to the hospital is thus being canceled and I was told there is no need for the hospitalist service to see the patient he he as crisis was coming to evaluate him for placement.
[2020-06-12] MEDS: LORazepam (*CRX) 0.5 MG TABLET 1 MG PO (23:44)
[2020-06-13 05:42] LABS: Alanine Aminotransferase 15 U/L (4-50); Albumin Level 3.7 g/dL (3.5-5.1); Alkaline Phosphatase 61 U/L (38-126); Anion Gap 4 mmol/L (8-16); Aspartate Amino Transferase 21 U/L (17-59); Bilirubin,Total 0.4 mg/dL (0.2-1.3); Blood Urea Nitrogen 11 mg/dL (9-20); Calcium 9.7 mg/dL (8.4-10.2); Carbon Dioxide 31 mmol/L (22-30); Chloride 106 mmol/L (98-107); Estimated CRCL calculation 62 ml/min; Estimated Glomerular Filt Rate > 60; Glucose 147 mg/dL (75-110); Potassium 4.8 mmol/L (3.4-5.0); Sodium 141 mmol/L (137-145)
[2020-06-13 07:34] VITALS: BP 144/76; PULSE 76; RESP 18; TEMP 37; O2SAT 98
[2020-06-13 20:16] LABS: SARS-CoV-2 RNA PCR Negative
== END 2020-06-13 09:52 | disposition home or self-care (01) ==
PROVIDERS: Emergency Medicine; Emergency Provider Emergency Medicine; PCP Internal Medicine Gastroenterology
DX: F32.3 Major depressive disorder, single episode, severe with psychotic features (principal); Z20.828 Contact with and (suspected) exposure to other viral communicable diseases; T39.1X2A Poisoning by 4-Aminophenol derivatives, intentional self-harm, initial encounter; R94.31 Abnormal electrocardiogram [ECG] [EKG]; K21.9 Gastro-esophageal reflux disease without esophagitis; E78.5 Hyperlipidemia, unspecified; I10 Essential (primary) hypertension; E11.9 Type 2 diabetes mellitus without complications; I69.351 Hemiplegia and hemiparesis following cerebral infarction affecting right dominant side; I69.320 Aphasia following cerebral infarction
CPT/HCPCS: 36415; 80053; 80307; 81003; 84443; 85025; 87635; 93005; 96360; 99284; A9270; C9803; J7030; U0003

== ENCOUNTER 2020-08-13 18:18 | Emergency (ER) | payer OTHER, SELFPAY ==
--- NOTE | ~2020-08-13 | CT_ITS ---
EXAMINATION: CT abdomen pelvis wo con DATE: 08/13/2020 21:21 INDICATION: Left flank pain. Urinary frequency. TECHNIQUE: Computed tomography (CT) of the abdomen and pelvis was performed without intravenous contr ast. Automated exposure control and iterative reconstruction technique were employed. The dose-length product was 546.63 mGy-cm. COMPARISON: 06/24/2019 FINDINGS: Mild discoid atelectasis in the lingula and right middle lobe. Heart size is normal. No pericardial o r pleural effusion. Liver, gallbladder, spleen, pancreas, bilateral adrenal glands and right kidney a re normal. Approximately 1 cm hypodense cyst at the upper pole of the left kidney. No urolithiasis or hydronephrosis. Bowels including the appendix are normal. Latter is normal. No free intraperitoneal gas or fluid. No pathologically enlarged abdominal or pelvic lymphadenopathy. Mild degenerative skele tyrone changes in the spine and bilateral hips. IMPRESSION: 1. No urolithiasis or acute intra-abdominal/pelvic process Reviewed, dictated and finalized at location A. 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
[2020-08-13 18:24] VITALS: BP 150/96; PULSE 86; RESP 17; TEMP 36.2; O2SAT 100
[2020-08-13 18:36] LABS: Basophils Absolute Auto 0.1 K/mm3 (0.0-0.1); Basophils Percent Auto 0.9 % (0.2-1.2); Eosinophils Absolute Auto 0.2 K/mm3 (0-0.3); Eosinophils Percent Auto 2.4 % (0-4.4); Hematocrit 41.5 % (42.0-52.0); Immature Granulocyte Absolute 0.02 K/mm3 (0.00-0.031); Immature Granulocyte Percent A 0.2 % (0-0.5); Lymphocytes Absolute Auto 3.36 K/mm3 (0.9-3.2); Lymphocytes Percent Auto 39.6 % (18.3-44.2); Mean Corpuscular HGB Conc 33.7 g/dl (32-36); Mean Corpuscular Hemoglobin 30.2 pg (26-34); Mean Corpuscular Volume 89.4 fl (80-100); Mean Platelet Volume 10.4 fl (7.4-10.4); Monocytes Absolute Auto 0.6 K/mm3 (0.1-0.6); Monocytes Percent Auto 7.4 % (2.6-8.5); Neutrophils Absolute Auto 4.2 K/mm3 (1.3-6.7); Neutrophils Percent Auto 49.5 % (45.5-73.1); Platelet Count Result 299 k/mm3 (150-375); Red Blood Count 4.64 M/mm3 (4.6-6.20); Red Cell Distribution Width 12.5 % (11.5-14.5); White Blood Count 8.5 K/mm3 (4.5-10.0)
[2020-08-13 18:38] LABS: Add Urine Microscopic? NO; Appearance Urine Clear (Clear); Bilirubin Urine Negative (Negative); Blood Urine Negative (Negative); Color Urine Colorless (Yellow); Glucose Urine UA Negative (Negative); Ketones Urine Negative (Negative); Leukocyte Esterase Ur Negative LEU/UL (Negative); Nitrate Urine Negative (Negative); Protein Urine Negative (Negative); Specific Grav Ur 1.005 (1.001-1.035); Urobilinogen Urine Negative mg/dL (<2.0)
[2020-08-13 18:47] LABS: Anion Gap 3 mmol/L (8-16); Blood Urea Nitrogen 9 mg/dL (9-20); Calcium 9.7 mg/dL (8.4-10.2); Carbon Dioxide 34 mmol/L (22-30); Chloride 105 mmol/L (98-107); Estimated Glomerular Filt Rate > 60; Glucose 77 mg/dL (75-110); Potassium 4.2 mmol/L (3.4-5.0); Sodium 142 mmol/L (137-145)
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
[2020-08-13 22:40] VITALS: BP 141/88; PULSE 81; RESP 16; O2SAT 100
[2020-08-13] MEDS: KETOROLAC (*BKC) 60 MG/2 ML VIAL IM (22:45)
== END 2020-08-13 22:40 | disposition home or self-care (01) ==
PROVIDERS: Family Medicine; Emergency Provider Emergency Medicine; PCP Internal Medicine Gastroenterology
DX: R10.9 Unspecified abdominal pain (principal); I69.920 Aphasia following unspecified cerebrovascular disease; I69.951 Hemiplegia and hemiparesis following unspecified cerebrovascular disease affecting right dominant side; K21.9 Gastro-esophageal reflux disease without esophagitis; E78.5 Hyperlipidemia, unspecified; I10 Essential (primary) hypertension; Z79.4 Long term (current) use of insulin; Z79.82 Long term (current) use of aspirin
CPT/HCPCS: 36415; 74176; 80048; 81003; 85025; 96372; 99284; J1885

== ENCOUNTER 2020-08-17 17:26 | Emergency (ER) | payer OTHER, SELFPAY ==
[2020-08-17 17:30] VITALS: BP 167/97; PULSE 90; RESP 16; TEMP 36.5; O2SAT 100
[2020-08-17 19:03] LABS: Glucose Point of Care 131 (65-105)
[2020-08-17 19:08] LABS: Add Urine Microscopic? NO; Appearance Urine Clear (Clear); Bilirubin Urine Negative (Negative); Blood Urine Negative (Negative); Color Urine Colorless (Yellow); Glucose Urine UA Negative (Negative); Ketones Urine Negative (Negative); Leukocyte Esterase Ur Negative LEU/UL (Negative); Nitrate Urine Negative (Negative); Protein Urine Negative (Negative); Specific Grav Ur 1.005 (1.001-1.035); Urobilinogen Urine Negative mg/dL (<2.0)
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
[2020-08-17 20:06] VITALS: BP 155/77; PULSE 69; RESP 16; O2SAT 97
== END 2020-08-17 20:09 | disposition home or self-care (01) ==
PROVIDERS: Emergency Provider Emergency Medicine; PCP Internal Medicine Gastroenterology
DX: R39.11 Hesitancy of micturition (principal); N40.3 Nodular prostate with lower urinary tract symptoms; K21.9 Gastro-esophageal reflux disease without esophagitis; I69.920 Aphasia following unspecified cerebrovascular disease; I69.951 Hemiplegia and hemiparesis following unspecified cerebrovascular disease affecting right dominant side; E78.5 Hyperlipidemia, unspecified; I10 Essential (primary) hypertension; E11.9 Type 2 diabetes mellitus without complications; Z79.4 Long term (current) use of insulin; Z79.82 Long term (current) use of aspirin
CPT/HCPCS: 81003; 82948; 99283

== ENCOUNTER 2020-08-20 12:07 | Emergency (ER) | payer OTHER, SELFPAY ==
--- NOTE | ~2020-08-20 | XR_ITS ---
EXAMINATION: XR chest 2V DATE: 08/20/2020 12:42 INDICATION: Chest pain and weakness TECHNIQUE: AP and lateral views of the chest are obtained. COMPARISON: 05/20/2020 FINDINGS: There is mild atelectasis of the lung bases. There is no pleural effusion or pneumothorax. The cardiomediastinal silhouette is normal. There is mild thoracic spondylosis. A cardiac loop record er is implanted in the anterior chest wall to the left of midline. IMPRESSION: 1. Mild atelectasis of the lung bases. Reviewed, dictated and finalized at location A. E HAND
[2020-08-20 12:12] VITALS: BP 137/86; PULSE 88; RESP 27; TEMP 36.6; O2SAT 99
[2020-08-20 12:15] VITALS: PULSE 89
--- NOTE | 2020-08-20 12:15 | ECG_ITS ---
Measurements Intervals [place] Rate: 94 P: 56 DC: 143 QRS: 27 QRSD: 77 T: -34 QT: 324 QTc: 405 Interpretive Statements SINUS RHYTHM BORDERLINE ST-T WAVE ABNORMALITY- INFERIOR LEADS BORDERLINE ECG Electronically Signed On 08-20-2020 12:39:44 UNIT AIDE TECH by Irvin Hidalgo D.O.
[2020-08-20 12:32] LABS: Basophils Absolute Auto 0.1 K/mm3 (0.0-0.1); Basophils Percent Auto 1.2 % (0.2-1.2); Eosinophils Absolute Auto 0.1 K/mm3 (0-0.3); Eosinophils Percent Auto 0.9 % (0-4.4); Hematocrit 42.2 % (42.0-52.0); Hemoglobin 14.5 g/dL (14.0-18.0); Immature Granulocyte Absolute 0.01 K/mm3 (0.00-0.031); Immature Granulocyte Percent A 0.1 % (0-0.5); Lymphocytes Absolute Auto 2.52 K/mm3 (0.9-3.2); Lymphocytes Percent Auto 32.9 % (18.3-44.2); Mean Corpuscular HGB Conc 34.4 g/dl (32-36); Mean Corpuscular Hemoglobin 30.7 pg (26-34); Mean Corpuscular Volume 89.2 fl (80-100); Mean Platelet Volume 10.2 fl (7.4-10.4); Monocytes Absolute Auto 0.6 K/mm3 (0.1-0.6); Monocytes Percent Auto 7.8 % (2.6-8.5); Neutrophils Absolute Auto 4.4 K/mm3 (1.3-6.7); Neutrophils Percent Auto 57.1 % (45.5-73.1); Platelet Count Result 288 k/mm3 (150-375); Red Blood Count 4.73 M/mm3 (4.6-6.20); Red Cell Distribution Width 12.8 % (11.5-14.5); White Blood Count 7.7 K/mm3 (4.5-10.0)
[2020-08-20 12:46] LABS: Anion Gap 8 mmol/L (8-16); Blood Urea Nitrogen 15 mg/dL (9-20); Calcium 9.4 mg/dL (8.4-10.2); Carbon Dioxide 25 mmol/L (22-30); Chloride 104 mmol/L (98-107); Estimated CRCL calculation 91 ml/min; Estimated Glomerular Filt Rate > 60; Glucose 115 mg/dL (75-110); Potassium 4.2 mmol/L (3.4-5.0); Sodium 137 mmol/L (137-145)
[2020-08-20 12:52] VITALS: BP 134/87; PULSE 79; RESP 12; O2SAT 97
[2020-08-20] MEDS: ASPIRIN 81 MG CHEWABLE TABLET 324 MG PO (12:52)
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
[2020-08-20 12:58] LABS: Troponin I 0.014 ng/mL (0.000-0.034)
[2020-08-20 13:03] LABS: Prothrombin Time 13.6 Seconds (11.1-14.7)
[2020-08-20 13:06] LABS: Partial Thromboplastin Time 26.5 SECONDS (22.3-36.8)
[2020-08-20 13:45] VITALS: BP 136/95; PULSE 86; RESP 16; O2SAT 99
[2020-08-20 15:31] LABS: Troponin I < 0.012 ng/mL (0.000-0.034)
[2020-08-20 16:27] VITALS: BP 127/90; PULSE 83; RESP 18; O2SAT 98
== END 2020-08-20 16:29 | disposition home or self-care (01) ==
PROVIDERS: Emergency Provider Emergency Medicine; PCP Internal Medicine Gastroenterology
DX: R07.89 Other chest pain (principal); I63.9 Cerebral infarction, unspecified; G81.91 Hemiplegia, unspecified affecting right dominant side; K21.9 Gastro-esophageal reflux disease without esophagitis; I10 Essential (primary) hypertension; E11.9 Type 2 diabetes mellitus without complications; Z97.4 Presence of external hearing-aid
CPT/HCPCS: 36415; 71046; 80048; 84484; 85025; 85610; 85730; 93005; 99284; A9270

== ENCOUNTER 2020-12-17 11:00 | Outpatient (RCR) | payer OTHER, SELFPAY ==
[2020-10-22 11:14] VITALS: BMI 30.7
[2020-10-22 11:15] VITALS: BMI 30.7
[2020-12-17 11:17] VITALS: BMI 30.7
== END 2021-01-13 14:56 | disposition home or self-care (01) ==
LOC: ANHDMC 11:00
PROVIDERS: PCP Internal Medicine Gastroenterology; Referring Provider Internal Medicine Gastroenterology; Visit Provider Internal Medicine Gastroenterology
DX: E11.40 Type 2 diabetes mellitus with diabetic neuropathy, unspecified (principal); Z71.3 Dietary counseling and surveillance
CPT/HCPCS: 97802; 97803

== ENCOUNTER 2021-02-09 10:46 | Outpatient (CLI) | payer OTHER, SELFPAY ==
--- NOTE | ~2021-02-09 | US_ITS ---
EXAMINATION: US carotid duplex BI DATE: 02/09/2021 11:33 INDICATION: Transient cerebral ischemic attack. TECHNIQUE: Grayscale, color Doppler, and pulsed Doppler images of the cervical carotid arteries were obtained. The degree of vessel stenosis is placed in one of the following categories: normal, <50%, 5 0-69%, >=70% but less than near-occlusion, near-occlusion, or total occlusion. Note that percent sten osis relative to normal distal artery lumen diameter is indirectly measured from velocity measurement s as described by Hero, et al. Radiology 2003; 229:340-346. COMPARISON: None. FINDINGS: RIGHT: The right common carotid artery (CCA) peak systolic velocity (PSV) is 102 cm/s. The right internal ca rotid artery (ICA) PSV is 61 cm/s. The right ICA end-diastolic velocity (EDV) is 21 cm/s. The right I CA/CCA PSV ratio is 0.6. Grayscale and color Doppler images yield an estimate of <50% diameter reduct ion from plaque in the ICA. The external carotid artery (ECA) PSV is 84 cm/s. There is antegrade flow in the right vertebral artery. LEFT: The left CCA PSV is 116 cm/s. The left ICA PSV is 53 cm/s. The left ICA EDV is 23 cm/s. The left ICA/ CCA PSV ratio is 0.5. Grayscale and color Doppler images yield an estimate of <50% diameter reduction from plaque in the ICA. The ECA PSV is 75 cm/s. There is antegrade flow in the left vertebral artery . IMPRESSION: 1. <50% stenosis in the right internal carotid artery. 2. <50% stenosis in the left internal carotid artery. Reviewed, dictated and finalized at location A.
== END 2021-02-09 10:47 | disposition home or self-care (01) ==
LOC: ANHIMG 10:48
PROVIDERS: PCP Internal Medicine Gastroenterology; Visit Provider Psychiatry & Neurology Neurology
DX: I65.23 Occlusion and stenosis of bilateral carotid arteries (principal)
CPT/HCPCS: 93880

== ENCOUNTER 2022-04-27 10:00 | Outpatient (RCR) | payer OTHER, SELFPAY ==
--- NOTE | 2022-02-18 16:30 | PTOPEVAL ---
PHYSICAL THERAPY INITIAL EVALUATION. Thank you for referring Dani Ulloa to [facility].? The patient is scheduled to be seen for therapy? 1x/week for 8 weeks. Please review, sign, date and return this plan of care SERGIO. I agree with and certify that the following plan of care is medically necessary. Referring Physician Date Attending Provider: Bairon Ma, MD *PT Outpatient Evaluation Start: 02/18/22 Evaluation Information Diagnosis Post CVA Onset 2019 Subjective Information Pt states he had a stroke Query Text:As Reported By Patient/ affecting his R side in 2019. Family He has completed therapy in the past. He states it feels like he is starting to get a little weaker. He states he would like to be able to throw a baseline with his son, have better motion of his wrist, and be able to walk more efficiently. He states he has some balance issues as well. Prior Level of Function Occupation on disability Pain Assessment Right Shoulder(s) Reported Pain Level 8 Lower Extremity Range of Motion General Lower Extremity Range of Motion WFL/Left,WFL/Right Lower Extremity Muscle Strength Testing General Lower Extremity Strength WFL/Left,WFL/Right Gross Lower Extremity Strength LLE grossly 5/5 R hip flexion 4/5 R knee flexion 4/5 R knee extension 3+/5 R ankle dorsiflexion 4-/5 R ankle inversion/eversion 4-/5 R knee lacking 25 deg of terminal knee ext in short sitting long arc quad Balance Assessment Ram Balance Assessment RAM Balance Evaluation Total Score (/56 49/56 Comments L tandem: 30s - test stopped R tandem: 25s L single leg stance: 20s - test stopped R single leg stance: 12s - very unsteady 5 Time Sit to Stand Time in Seconds 19 5 Time Sit to Stand Comments without the use of UEs, minor Query Text:Normative Data: If Greater decreased eccentric control Gait Assessment Ambulation Assistive Devices None Gait Pattern Observed Trunk Lateral Lean - Right Other Gait Observations equal step length and stride length, with increased time RLE begins to scuff the floor
--- NOTE | 2022-03-02 10:52 | PCPTNOTE ---
Patient called the time of appointment and rescheduled. No know reason.
--- NOTE | 2022-03-15 11:35 | PCPTNOTE ---
Patient did not show to appointment. Called and left voicemail.
--- NOTE | 2022-03-30 13:49 | OTOPEVAL1 ---
Assessment and note entered by Rosina Cramer OT Evaluation Information Assessment Status Evaluation Diagnosis CVA February 16 2020 Subjective Information Patient reports difficulty with gripping, grasping objects. Patient reports will often times use L hand to complete tasks instead of dominant R hand. Reported Pain Level Pain Score 4: Self Report Pain Score 0: Self Report Assessment OT Clinical Summary Dani is a 46 year old male who presents to Outpatient OT with a history of a CVA in 2019. He has previously attended therapy. Patient reports today pain and stiffness of R shoulder and overall weakness in dominant R UE including gripping, grasping, coordination tasks which makes completing ADLs and activities difficult. Patient demonstrates decreased active ROM of R UE shoulder in addition to weakness of R UE, decreased R UE client support administrator and pinch strengths, decreased fine motor coordination tested through nine hole peg test. Patient would benefit from skilled OT in order to educate on HEP materials, UE strengthening, fine motor coordination tasks, modalities as needed in order to improve participation with functional ADLs and activities. Plan of Care Interventions Therapeutic Exercise,Manual Therapy,Neuro Re- education,Therapeutic Activities,Hot Pack/Cold Pack OT Services Indicated Yes These treatments will address the objective and functional deficits as defined above. The patient will be advanced safely and appropriately in order for the patient to progress towards his/her prior level of function. Additional exercises will be introduced and as well as a comprehensive home exercise program upon discharge, if needed, ?to ensure carryover of functional gains achieved in the clinic. This treatment plan has been reviewed and agreement upon by the patient.
--- NOTE | 2022-04-13 11:43 | PTOPDC ---
Assessment and note entered by Shahid Wang, PT, DPT Evaluation Information Assessment Status Progress Diagnosis R sided hemiparesis Subjective Information Pt states he feels like his balance is improving as well as his ability to ascend/descend stairs without difficultly. He states he feels like therapy has been really beneficial for him. Reported Pain Level Pain Score 0: Self Report Assessment PT Clinical Summary Dani presents to therapy today for his progress report following 6 visits of skilled therapy and participation in a home exercise program to treat the deficits from his prior CVA in 2019. Today he demonstrates improved strength in his RLE and is now grossly 4+/5. He is able to perform a single leg sit to stand and a single leg heel raise. He demonstrates a perfect score on the RAM balance assessment and improved his 2 min walk distance from 445ft to 480ft. He has met all of his physical therapy goals and will be discharged at this time. Plan of Care Treatment Frequency and to be discharged Duration
--- NOTE | 2022-04-27 10:53 | OTOPDC ---
Assessment and note entered by YEYO Freitas/Tony Evaluation Information Assessment Status Discharge Diagnosis CVA February 16 2020 Subjective Information Patient has attended Outpatient OT for the past 4 weeks for a tune up to address R UE ROM, shoulder pain, decreased UE shoulder strength, social psychologist/pinch strength. Patient reports since starting therapy has more range of motion in shoulder with less pain, increased social psychologist strength in R hand. Reported Pain Level Pain Score 2: Self Report Assessment OT Clinical Summary Dani is a 46 year old male who presents to Outpatient OT with a history of a CVA in 2019. He has attended therapy for the past 5 weeks working on UE strengthening, shoulder ROM, and fine motor coordination tasks. Patient reports improved strength/ROM of shoulder with less pain, increased coordination and strength in social psychologist and pinch strengths. He demonstrates improved strength in R UE, increased social psychologist/pinch strength and fine motor coordination WNL tested through nine hole peg test . No skilled OT indicated, patient agreeable to discharge today with next progression of theraputty and therabands in addition to patient being independent with all HEP materials. Plan of Care OT Services Indicated No
== END 2022-04-28 16:36 | disposition home or self-care (01) ==
LOC: ANHGOSHOT 10:00
PROVIDERS: PCP Internal Medicine Gastroenterology; Visit Provider Internal Medicine Gastroenterology
DX: I69.90 Unspecified sequelae of unspecified cerebrovascular disease (principal)
CPT/HCPCS: 97110; 97112; 97140; 97161; 97165; 97168; 97530; 99199

== ENCOUNTER 2022-11-18 11:11 | Outpatient (CLI) | payer OTHER, SELFPAY ==
[2022-11-18 12:01] LABS: Hemoglobin A1C 8.5 % (<5.7)
[2022-11-18 12:10] LABS: LDL Cholesterol Direct 83 mg/dL
== END 2022-11-18 11:12 | disposition home or self-care (01) ==
LOC: ANHLAB 11:14
PROVIDERS: PCP Internal Medicine Gastroenterology; Visit Provider Student in an Organized Health Care Education/Training Program
DX: I63.9 Cerebral infarction, unspecified (principal); I69.911 Memory deficit following unspecified cerebrovascular disease
CPT/HCPCS: 36415; 83036; 83721

== ENCOUNTER 2022-11-25 13:17 | Outpatient (CLI) | payer OTHER, SELFPAY ==
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
== END 2022-11-25 13:18 | disposition home or self-care (01) ==
PROVIDERS: PCP Internal Medicine Gastroenterology; Visit Provider Student in an Organized Health Care Education/Training Program
DX: I63.9 Cerebral infarction, unspecified (principal)
CPT/HCPCS: 70551

== ENCOUNTER 2024-06-24 11:21 | Outpatient (CLI) | payer BC, SELFPAY ==
--- NOTE | ~2024-06-24 | XR_ITS ---
XR knee LT 3V Ordering provider: Susana Muse MD History: . Pain lt knee, CHRONIC PAIN- OLD TWISTING INJURY . Comparison: None. FINDINGS: BONES: No acute fracture or dislocation. JOINT SPACES: Normal. SOFT TISSUES: Normal. IMPRESSION: No acute osseous abnormality left knee. Reviewed, dictated and finalized at location A. ONAL ACCOUNT EXECUTIVE
[2024-06-24 12:34] LABS: INR 0.9; Prothrombin Time 12.9 Seconds (11.1-14.7)
[2024-06-24 12:44] LABS: Cholesterol 166 mg/dL (0-200); HDL Direct 40 mg/dL; Triglycerides 104 mg/dL (<150)
[2024-06-24 12:46] LABS: D Dimer 0.38 ug/mL (<0.48)
[2024-06-24 12:56] LABS: LDL Cholesterol Direct 89 mg/dL
[2024-06-24 13:00] LABS: Hemoglobin A1C 7.2 % (<5.7)
[2024-06-24 13:03] LABS: LDL Cholesterol Direct 90 mg/dL
[2024-06-25 15:14] LABS: Homocysteine 13.4 umol/L (<11.4)
[2024-06-26 16:23] LABS: Lipoprotein A 300 nmol/L
[2024-06-28 01:53] LABS: Anti Cardio Antibody IgM <2.0 MPL-U/mL; Anti Cardiolipin Antibody IgA <2.0 APL-U/mL; Anti Cardiolipin Antibody IgG <2.0 GPL-U/mL
[2024-06-28 06:08] LABS: APC Ratio 4.8 ratio (>=2.1)
[2024-06-28 07:34] LABS: Antithrombin III Activity 117 % normal (80-135)
[2024-06-28 20:59] LABS: Factor VIII Activity 97 % normal (50-180)
[2024-06-29 02:33] LABS: Factor V (Leiden) Mutation NEGATIVE
[2024-07-01 19:39] LABS: Lupus dRVVT Screen 36 sec (< OR = 45); PTT-LA Screen 34 sec (< OR = 40)
== END 2024-06-24 11:22 | disposition home or self-care (01) ==
LOC: ANHIMG 11:26
PROVIDERS: Student in an Organized Health Care Education/Training Program; PCP Internal Medicine Gastroenterology; Visit Provider Psychiatry & Neurology Neurology
DX: M25.562 Pain in left knee (principal); G89.29 Other chronic pain; I63.9 Cerebral infarction, unspecified; I10 Essential (primary) hypertension; E11.9 Type 2 diabetes mellitus without complications; Z79.4 Long term (current) use of insulin
CPT/HCPCS: 36415; 73562; 80061; 81240; 81241; 81291; 83036; 83090; 83695; 83721; 85240; 85300; 85303; 85306; 85307; 85380; 85610; 85613; 85730; 86146; 86147